=== PATIENT | male | born 1990 | race Caucasian/White ===

== ENCOUNTER 2022-06-05 14:56 | Emergency (ER) | payer SELFPAY ==
[2022-06-05 15:12] VITALS: BP 125/81; PULSE 81; RESP 16; TEMP 37.3; O2SAT 98
[2022-06-05 15:55] LABS: Basophils # 0.1 10^3/uL (0.0-0.1); Basophils % 0.8 %; Eosinophils # 0.1 10^3/uL (0.0-0.8); Eosinophils % 1.8 %; Hematocrit 50.1 % (42.0-52.0); Hemoglobin 17.2 g/dL (11.7-16.6); Lymphocytes # 2.1 10^3/uL (0.8-4.8); Lymphocytes % 26.9 %; Mean Corpuscular HGB Conc 34.3 g/dL (30.0-36.0); Mean Corpuscular Hemoglobin 29.7 pg (28.0-34.0); Mean Corpuscular Volume 86.4 fl (80-94); Mean Platelet Volume 10.2 fL (7.4-10.4); Monocytes # 0.5 10^3/uL (0.2-0.9); Neutrophils # 4.88 10^3/uL (1.8-7.7); Neutrophils % 64.2 %; Nucleated Red Blood Cells % 0 %; Platelet Count 279 10^3/cmm (130-400); Red Cell Distribution Width 12.4 % (12.1-15.1); White Blood Count 7.6 10^3/uL (4.0-10.0)
[2022-06-05] MEDS: metoclopramide 5 mg/mL SDV 2 mL 10 MG IVP (16:13)
[2022-06-05] MEDS: ketorolac 30 mg/mL INJ IVP (16:13)
[2022-06-05] MEDS: diphenhydrAMINE 50 mg/mL SDV 1mL IVP (16:13)
[2022-06-05] MEDS: sodium chloride 0.9% 1,000 ML 999 ML IV (16:13)
--- NOTE | 2022-06-05 16:13 | ED_ITS ---
HPI - General Adult General: Chief complaint: Headache Stated complaint: migraine Time Seen by Provider: 06/05/22 15:32 History of Present Illness: [31]yo patient w hx of migraine headache presenting to the ED with new onset of headache x since 7am this morning. Describes the headache as pulsatile or cramping. Patient reports headache was gradual in onset over 1-2 hrs and has since been intermittent unremitting and worsening. Headache associated with +N/+V, photophobia, generalized weakness, and inability to concentrate on tasks. Patient reports headache is very similar to prior migraine headaches. Denies fever/chill, hx of immunocompromise, HIV, or transplant. The patient denies any focal neurological weakness, vision blindness, diplopia, or eye pain, hoarseness of voice or facial weakness. Patient denies that this headache is not worst headache of life and sudden in onset. The headache did not reach maximal intensity over first 1-2 hours. Patient has no family hx of aneurysms. No family hx of subarachnoid hemorrhage. Denies recent trauma to the head. Pain is unrelieved with OTC medication, ibuprofen or Tylenol. No complaints of chest pain, shortness of breath, pal pitations, light-headedness/vertigo/syncope, abdominal pain, or complaints today. Onset: 7am Duration: ongoing Location: home Severity: moderate Associated symptoms: Reports headache(s); Deny chest pain, dyspnea, nausea, rash, palpitations or vomiting Review of Systems Const: Denies: fever(s) or chills Eyes: Denies: change in vision ENMT: Denies: mouth pain Card: Denies: chest pain or palpitations Resp: Denies: dyspnea or non-productive cough GI: Denies: abdominal pain, nausea, vomiting or diarrhea : Denies: dysuria Musc: Denies: extremity pain Skin/Breast: Denies: rash or new lesions Neuro: Reports: headache(s); Denies: weakness in extremities Psych: Reports: other (Normal mood) Abraham/Lymph: Denies: easy bruising PFSH ED PFSH: Medical History Migraine Social History Smoking and tobacco status: current every day smoker Alcohol intake: never Substance/Drug Use: never Physical Exam Const: COMMON NORMALS: alert HENMT: COMMON NORMALS: atraumatic HEAD & SCALP: atraumatic MOUTH: moist mucous membranes not abnormal Eye: COMMON NORMALS: EOMs intact bilaterally and conjunctivae normal CONJUNCTIVA: Yes conjunctivae normal Neck/C-Spine: COMMON NORMALS: full ROM and supple Resp: COMMON NORMALS: normal respiratory effort and clear to auscultation bilaterally AUSCULTATION: clear to auscultation bilaterally Cardio: COMMON NORMALS: regular rate RATE: regular rate GI: COMMON NORMALS: Soft to palpation and non-tender PALPATION: Yes Soft to palpation Extremity: COMMON NORMALS: full ROM Neuro: SENSORIUM/ORIENTATION: Yes alert MOTOR EXAM: No Abnormal motor strength present and Other motor observations present (no focal motor deficits) OTHER: Mental status? Awake, alert, and oriented to self, year, month, location, and situation.? Following simple axial and appendicular commands.? Has appropriate fund of knowledge, comprehension, and insight.? Able to recall and understands pertinent aspects of medical history and current treatment status.? ? Language? Speech is fluent without word-finding difficulties.? Intact naming, expression, almond blancher hand, and repetition.? ? Cranial nerves? 2,3,4,6: PERRL, EOMI with no nystagmus. 5: Intact sensation to light touch, symmetric? 7: Smile symmetrical, no facial droop.? 8: Hearing grossly intact.? 9,10: Normal palate movement.? 11: Normal strength in trapezius bilaterally 12: Tongue protrudes midline.? ? Motor examination? Normal bulk & tone. Strength as follows (R/L): Delts (5/5), Biceps (5/5), Triceps (5/5), Wrist ext (5/5), hip flexors (5/5), plantarflexors (5/5), dorsiflexors (5/5). ? Sensation? Light Touch: Grossly intact and equal in upper and lower extremities bilaterally? Romberg: Negative.? Distal joint position sense intact ? Coordination? Acqwhk-do-petq-finger movements intact without dysmetria or past-pointing.? Rapid fingertaps: preserved amplitude without decriment.? No tremor, myoclonus or truncal ataxia.? ? Gait/stance? Steady, normal narrow base gait with appropriate arm swing and turning.? Tandem gait without hesitation or loss of balance. Psych: COMMON NORMALS: speech normal SPEECH: Yes normal speech MOOD & AFFECT: Yes euthymic mood Course Vital Signs: Vital signs: Vital Signs Temperature 99.2 F 06/05/22 15:12 Pulse Rate 81 06/05/22 15:12 Respiratory Rate 16 06/05/22 15:12 Blood Pressure 125/81 06/05/22 15:12 Pulse Oximetry 98 06/05/22 15:12 MDM - General Adult Medical Decision Making [31] yo w/ hx of mgiriane presents with moderate to severe headache. -Fever, -Nausea/-Vomiting, -Neck pain. -Trauma. Afebrile, HDS stable. No focal neurological symptoms. Neuro exam is non-focal. Pt is nontoxic. Based on history and normal neurological exam I do not suspect for intracranial tumor, intracranial bleed, subdural/epidural hematoma, meningitis or intracranial abscess, encephalopathy or encephalitis, temporal arteritis, glaucoma, CO poisoning. Presentation most likely benign headache. Intervention today: IVF, Reglan, Benadryl, Toradol [5:30pm] On reassessment, the patient reports the headache is symptomatically improved with treatment. Neuro exam intact. Patient is able to ambulate and tolerate PO in the ED. I doubt that this is subarachnoid bleed given the fact the patient has not had worse headache of his life, headaches associate with other symptoms, has no family history of aneurysm. Rx: Magnesium oxide, Tylenol, Reglan as needed for headache Disposition: Discharge home with strict return precautions and instructions for prompt primary care follow up. Given referral for Neurology should any headache recur. Given return instructions for any focal deficit, fever/chill, neck pain or any new or concerning symptoms. Lab Data : 06/05/22 15:50 06/05/22 15:50 Laboratory Results WBC 7.6 10^3/uL (4.0-10.0) 06/05/22 15:50 RBC 5.80 10^6/uL (4.1-5.3) H 06/05/22 15:50 Hgb 17.2 g/dL (11.7-16.6) H 06/05/22 15:50 Hct 50.1 % (42.0-52.0) 06/05/22 15:50 MCV 86.4 fl (80-94) 06/05/22 15:50 MCH 29.7 pg (28.0-34.0) 06/05/22 15:50 MCHC 34.3 g/dL (30.0-36.0) 06/05/22 15:50 RDW 12.4 % (12.1-15.1) 06/05/22 15:50 Plt Count 279 10^3/cmm (130-400) 06/05/22 15:50 MPV 10.2 fL (7.4-10.4) 06/05/22 15:50 Neut % (Auto) 64.2 % 06/05/22 15:50 Lymph % (Auto) 26.9 % 06/05/22 15:50 Candler % (Auto) 6.0 % 06/05/22 15:50 Eos % (Auto) 1.8 % 06/05/22 15:50 Baso % (Auto) 0.8 % 06/05/22 15:50 Neut # (Auto) 4.88 10^3/uL (1.8-7.7) 06/05/22 15:50 Lymph # (Auto) 2.1 10^3/uL (0.8-4.8) 06/05/22 15:50 Candler # (Auto) 0.5 10^3/uL (0.2-0.9) 06/05/22 15:50 Eos # (Auto) 0.1 10^3/uL (0.0-0.8) 06/05/22 15:50 Baso # (Auto) 0.1 10^3/uL (0.0-0.1) 06/05/22 15:50 Nucleated RBC % (auto) 0 % 06/05/22 15:50 Nucleated RBCs # 0.0 /100WBC 06/05/22 15:50 Sodium 139 mmol/L (136-145) 06/05/22 15:50 Potassium 4.0 mmol/L (3.5-5.1) 06/05/22 15:50 Chloride 101 mmol/L (98-107) 06/05/22 15:50 Carbon Dioxide 28 mmol/L (22-29) 06/05/22 15:50 Anion Gap 14.0 (5-19) 06/05/22 15:50 BUN 16 mg/dL (6-20) 06/05/22 15:50 Creatinine 0.8 mg/dL (0.7-1.2) 06/05/22 15:50 GFR Calculation 112.0 mL/min (90-130) 06/05/22 15:50 Glucose 123 mg/dL (65-115) H 06/05/22 15:50 Calculated Osmolality 291 mOsm/kg (285-295) 06/05/22 15:50 Calcium 9.5 mg/dL (8.5-10.5) 06/05/22 15:50 Discharge Plan Discharge Patient Disposition: Home Clinical Impression: Migraine, Headache Condition: Stable Prescriptions: New acetaminophen 500 mg tablet 500 mg PO Q6H PRN (Reason: pain) 5 Days Qty: 20 0RF Reglan 5 mg tablet 5 mg PO BID PRN (Reason: nausea and vomiting) 5 Days Qty: 10 0RF magnesium oxide 400 mg magnesium capsule 400 mg PO DAILY PRN (Reason: headache) 10 Days Qty: 10 0RF Discharge Orders: Discharge ED (Routine); Ordered 06/05/22 Ordered By: Sammy Alcala Discharge Diet: Advance as tolerated Discharge Activity: Increase activity as tolerated Patient Instructions: Acute Headache (ED) Activity Restrictions/Additional Instructions: Please come back to the emergency room you have any fever chills, worsening headache, focal weakness, nausea/vomiting, inability to perform daily activity, or any new concerning complaints. Coding Level of Care Code ED [employer] Fwd Exam Comprehensive
[2022-06-05 16:17] LABS: Blood Urea Nitrogen 16 mg/dL (6-20); Calcium 9.5 mg/dL (8.5-10.5); Carbon Dioxide 28 mmol/L (22-29); Chloride 101 mmol/L (98-107); Glucose 123 mg/dL (65-115); Osmolality Calculated 291 mOsm/kg (285-295); Sodium 139 mmol/L (136-145)
== END 2022-06-05 17:33 | disposition home or self-care (01) ==
PROVIDERS: Emergency Provider Emergency Medicine
DX: G43.909 Migraine, unspecified, not intractable, without status migrainosus (principal); F17.210 Nicotine dependence, cigarettes, uncomplicated
CPT/HCPCS: 80048; 85025; 96374; 96375; 99284; J1200; J1885; J2765; J7030